=== PATIENT | male | born 1960 | race Caucasian/White ===

== ENCOUNTER 2019-08-13 00:11 | Outpatient (CLI) | payer OTHER, SELFPAY ==
[2019-08-13 18:54] LABS: SARS-CoV-2 RNA PCR Negative
== END 2019-08-13 00:12 | disposition home or self-care (01) ==
LOC: ANHCOVIDDT 00:11
PROVIDERS: PCP Family Medicine; Visit Provider Surgery
DX: Z01.812 Encounter for preprocedural laboratory examination (principal); Z11.59 Encounter for screening for other viral diseases
CPT/HCPCS: 87635; C9803; U0003

== ENCOUNTER 2019-08-15 01:32 | Day surgery (SDC) | payer OTHER, SELFPAY ==
[2019-08-02 14:01] VITALS: BMI 29.5
--- NOTE | 2019-08-14 12:49 | PM.SD ---
Same Day Admit/Disch: HPI History of Present Illness Chief complaint: ventral hernia Narrative: Willie Wagner is a 58 year old male Who has had a bulge above the umbilicus for at least 5 years. It has been getting larger. He is seen in the office and found to have a supraumbilical ventral hernia. He is taken to surgery now for repair. He has not really had much discomfort from it. No previous abdominal surgery. 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 Gender identity (if verbalized by the patient): Male Same Day Admit/Disch: Med Pre-admit Medications Home Medications Medication Instructions Recorded Confirmed Type hydrocodone-acetaminophen 1 - 2 tablet PO Q6H PRN #10 tablet 08/15/19 Rx ketorolac 10 mg PO Q6H 4 Days #16 tablet 08/15/19 Rx Exam Const: General: comfortable, no acute distress, alert and awake HENMT: Head: normocephalic and atraumatic Mouth: Yes Normal oral and palatal mucosa present Eyes: Conjunctivae: conjunctivae normal Pupils: Equal, round and reactive pupils present EOM: EOMs intact bilaterally Neck: Neck: normal visual inspection, no lymphadenopathy and nontender Resp: Effort & Inspection: normal respiratory effort Auscultation: clear to auscultation bilaterally Cardio: Rate: regular rate Rhythm: regular rhythm Heart sounds: no gallops, no murmurs and no rubs GI: Inspection: non-distended and visible herniation ( supraumbilical) GI Palp: Yes Soft to palpation, No Tenderness to palpation present (GI), No Hepatomegaly present, No Splenomegaly present and Yes Hernia present ( partially reducible, nontender, large supraumbilical chronic hernia) Auscultation: normal bowel sounds Skin: Lesions: no lesions Rashes: no rashes Neuro: General: no focal motor deficits and CN's II-XI intact bilaterally Cranial nerves: Yes Equal, round and reactive pupils present, Yes Bilaterally intact EOM present, Yes facial symmetry and Yes Midline tongue present Speech: normal speech Motor exam (neuro): 5/5 motor strength present throughout and Motor abnormalities not present Extrem: General: no clubbing, cyanosis or edema and edema Psych: Affect: normal affect Thought process: Normal thought process present Insight: Good insight present (Psych) DS: Summary Time Spent with Patient Time attestation: Total time spent providing and/or coordinating discharge services: DS: Admitting Diagnosis Admitting Diagnosis Admitting Diagnosis: ventral hernia daily alcohol consumption DS: Discharge Diagnosis Discharge Diagnosis (1) Ventral hernia: Qualifiers: Obstruction and gangrene presence: without obstruction or gangrene Qualified Code(s): K43.9 - Ventral hernia without obstruction or gangrene Code(s): K43.9 - Ventral hernia without obstruction or gangrene Status: Chronic Assessment and Plan: plan to proceed with open repair of supraumbilical ventral hernia that is longstanding. I discussed the procedure the risks the benefits with him. I explained that mesh will almost certainly be used to avoid recurrence. The usual recovery and potential complications were dis
--- NOTE | 2019-08-14 14:03 | P.PNAN_ITS ---
Anes - Initial Pre Proc Eval Procedure: Operation Date: 08/15/19 07:30 Proposed Procedures p Repair Lucille Umbilical Ventral Hernia with Mesh - Stan Moss MD Date/Time: 08/14/19 14:03 Surgeon: Stan Moss MD Pre Op Diagnosis: ventral hernia Patient Data Age: 58 Gender: M Height: 1.75 m Weight: 90.72 kg Allergies Allergy/AdvReac Type Severity Reaction Status Date / Time dicyclomine AdvReac Mild Rash Verified 08/15/19 06:49 levofloxacin AdvReac Mild Rash Verified 08/15/19 06:49 metronidazole AdvReac Mild Rash Verified 08/15/19 06:49 Home Medications Medication Instructions Recorded Confirmed Type No Home Medications 07/12/19 08/15/19 History Patient hx anesthesia problems: none Family hx anesthesia problems: none PMFSH Past Medical History Medical History Daily consumption of alcohol GERD (gastroesophageal reflux disease) Overweight (BMI 25.0-29.9) Ventral hernia Surgical History Surgical History History of esophagogastroduodenoscopy (EGD) Family History Family History Father Family history of liver disease Mother Family history of dementia Unknown Diabetes mellitus Cerebrovascular accident Other Family history of allergic disorder Social History Social History Smoking status: Never smoker Alcohol intake: current Substance use: never 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 Questions were solicited and answers provided to the satisfaction of the patient/family/POA.
[2019-08-15 06:17] VITALS: BP 170/94; PULSE 68; RESP 16; TEMP 36.6; O2SAT 99
[2019-08-15] MEDS: LACTATED RINGERS 1,000 ML 30 ML IV CONT (06:30)
--- NOTE | 2019-08-15 06:49 | WPDHPUPDATE1 ---
History and Physical Update Update Date/Time: 08/15/19 06:49 History and Physical has been reviewed, including an updated exam of the patient. There are NO changes in the patient's condition. Risks, benefits, and alternatives have been discussed and questions answered. Patient agrees to proceed with procedure.
[2019-08-15] MEDS: ceFAZolin 2 GM/D5W 50 ML 2 GM/50 ML BAG IVPB (07:21)
--- NOTE | 2019-08-15 07:26 | P.OP_ITS ---
Procedure Note - Detailed Date of procedure: 08/15/19 Pre-op diagnosis: ventral hernia Ventral hernia Post-op diagnosis: same Procedure performed: Ventral hernia repair with 6.6 cm Parietex underlay mesh Description of procedure: Patient was taken to the operating room and IV sedation was administered. Prep and drape was carried out. The proposed incision just above the upper margin of the umbilicus was marked on the skin. Local anesthetic was infiltrated into the skin and the deeper subcutaneous tissues. Incision was made and dissection was carried down through the skin and to the hernia sac. The sac was then dissected free from the umbilical skin and the surrounding subcutaneous tissues. It was dissected down to its neck. Additional local anesthetic was infiltrated into the neck and the fascia jaramillo rrounding the neck of the hernia sac. The sac was then amputated at its neck. The subcutaneous was undermined around the hernia defect. Additional local was infiltrated around the fascia. I placed a finger inside the hernia defect and checked for any abdominal wall adhesions in the area. None were found. No other hernias were noted. A 6.6 cm Parietex bear river was chosen. It was folded and placed in the defect. Once it symmetrically covered the defect, I placed cranial and caudal transfascial sutures of 0 Ethibond. These sutures were placed in such a fashion that, when tied, they would advance the edges of the hernia defect towards 1 another. These sutures were tied and had the desired effect. Lateral transfascial sutures of 0 Ethibond were then placed on the right and left sides. I then closed the hernia defect with [id number] mattress sutures of 0 Ethibond. The repair looked quite satisfactory. I then infiltrated additional local all around the areas of the repair. The umbilical skin was tacked to the fascia with 3 0 Vicryl suture. The subcutaneous was closed with 3 0 Vicryl. Subcuticular interrupted 4 O Vicryl skin stitches were placed. The skin was then closed with running 4 0 Monocryl subcuticular suture. Wound was dressed with Exofin surgical adhesive. The patient was awakened and taken to recovery in good condition. Counts were correct x2. Implants: 6.6 cm Parietex hernia mesh Anesthesia: MAC and local (0.5% Marcaine with Exparel) Surgeon: Stan Msos MD Diabetes Education Coordinator: Jennifer ASTUDILLO Estimated blood loss (mL): 5 Drains: No Packing: No Pathology: none sent Complications: None Condition: stable Disposition: same day Findings: 20 millimeter hernia defect
[2019-08-15 08:31] VITALS: BP 153/91; PULSE 70; RESP 12; TEMP 36.4; O2SAT 100
[2019-08-15 09:00] VITALS: BP 188/81; PULSE 66; RESP 12
[2019-08-15 09:25] VITALS: BP 177/91; PULSE 66; RESP 18
== END 2019-08-15 09:35 | disposition home or self-care (01) ==
PROVIDERS: PCP Family Medicine; Visit Provider Surgery
PROC: 0WQF0ZZ Repair Abdominal Wall, Open Approach (ICD-10-PCS; CPT 49560; principal; 2019-08-15 07:30)
DX: K43.9 Ventral hernia without obstruction or gangrene (principal); K21.9 Gastro-esophageal reflux disease without esophagitis
CPT/HCPCS: 49560; 49568; C1781; C9290; J0690; J2250; J2405; J2704; J3010; J7120

== ENCOUNTER 2024-12-11 00:49 | Day surgery (SDC) | payer MEDICARE, SELFPAY ==
--- OUTSIDE RECORDS SUMMARY | 2004-04-21 07:30 | XMS_ITS | Continuity of Care Document ---
Author Organization Formerly [facility] Address [id number] [place] [address] [address] [place] [address] Phone Care Team Providers Care Animal Physiologist Name Role Phone Basia Recinos Unavailable Unavailable Advance Directives Directive Yes / No Effective Date File Name No Information Encounters Encounter Description Practice Location Reason(s) For Visit Diagnoses Date Provider Providers Copied on Encounter [facility], [id number] [place] [address] [address], [place], [place], [id number], [place] tel:[phone] [facility] No Information Mar-0 8-200 5 Grisel Flor. [address] , [address], [place], [address], [place]. tel:[phone] Referring Provider: Bon Bhat MD, [address] [place] [address], [place], [address]. tel:[phone] Family History Family Member Type Diagnosis Age At Onset No Information Payers Payer name Insurance type Covered democrat ID Authoriza tion(s) No Information Social History Type Description Quantity Date Captured Comments Sex Male Smoking Status No Information Chief Complaint And Reason For Visit No Information Reason For Referral Reason For Referral No Information History Of Present Illness Encounter Date Complaint History Of Prese nt Illness No Information Functional Status Date Functional Assessmen t No Information Instructions Date Instruction Additional Infor mation No Information Assessments Type Assessment Date No Information Patient Care Teams Name Effective Dates (start - stop) Status Members No Information
[2024-11-30 10:19] VITALS: BMI 31.0
--- OUTSIDE RECORDS SUMMARY | 2024-12-11 00:51 | XMS_ITS | Encounter Summary ---
Author Organization [facility] Address [address] [place] [address] Care Team Providers Care Moving Van Driver Name Role Phone Bon Bhat MD Primary Care Provider Encounter Details Date Type Department Care Team (Late st Contact Info) Description 07/17/2021 Telephone [facility] Pul[facility], Critical Care and Sleep Medicine [address] [facility], [place] [id number] Brien Summers MD [address] [facility] 2[address] DIV OF PULMONARY/CRITICAL CARE [place], [place] [id number] Social History Tobacco Use Types Packs/Day Years Used Date Smoking Tobacco: Never Assessed Sex and Gender Information Value Date Recorded Sex Assigned at Not on file Legal Sex Male 6:58 PM CDT Gender Identity Not on file Sexual Orientation Not on file documented as of this encounter Functional Status * Is person deaf or have serious hearing difficulty? Answer Date of Assessment Author No 06/28/2021 11:28 AM Zari Belcher RN * Is person blind or have serious difficulty seeing? Answer Date of Assessment Author No 06/28/2021 11:28 AM Zari Belcher RN * Does person have serious difficulty walking/climbing stairs? Answer Date of Assessment Author No 06/28/2021 11:28 AM Zari Belcher RN * Does person have difficulty dressing/bathing? Answer Date of Assessment Author No 06/28/2021 11:28 AM Zari Belcher RN * Does person have difficulty doing errands alone? Answer Date of Assessment Author No 06/28/2021 11:28 AM Zari Belcher RN documented as of this encounter Mental Status * Does person have difficulty concentrating/remembering/making decisions? Answer Entry Date Author No 06/28/2021 11:28 AM Zari Belcher RN documented in this encounter Plan of Treatment Not on file documented as of this encounter Visit Diagnoses Not on filedocumented in this encounter Care Teams Moving Van Driver Relationship Specialty Start Date End Date Bon Bhat MD [address] [place] [id number] PCP - General 06/29/21 documented as of this encounter
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
[2024-12-11 07:13] VITALS: BP 129/93; PULSE 89; RESP 18; TEMP 36.1; O2SAT 100
[2024-12-11] MEDS: LACTATED RINGERS 1,000 ML 150 ML IV CONT (07:24)
--- NOTE | 2024-12-11 08:06 | WPDANESEPPF ---
Anes - Initial Pre Proc Eval Procedure: Operation Date: 12/11/24 08:30 Proposed Procedures p Screening Colonoscopy - Bayron Moser DO Date/Time: 12/11/24 08:06 Surgeon: Bayron Moser DO Pre Op Diagnosis: Neoplasm screening Patient Data Age: 64 Gender: M Height: 1.75 m Weight: 90.7 kg Last Vital Signs Temp 97 F L 12/11/24 07:13 Pulse 89 12/11/24 07:13 Resp 18 12/11/24 07:13 BP 129/93 H 12/11/24 07:13 Pulse Ox 100 12/11/24 07:13 O2 Del Method Room Air 12/11/24 07:13 Allergies Allergy/AdvReac Type Severity Reaction Status Date / Time dicyclomine AdvReac Mild Rash Verified 12/11/24 07:12 levofloxacin AdvReac Mild Rash Verified 12/11/24 07:12 metronidazole AdvReac Mild Rash Verified 12/11/24 07:12 Home Medications ?Medication ?Instructions ?Recorded ?Confirmed ?Type omeprazole magnesium 20 mg 20 mg PO DAILY 12/06/23 12/11/24 History tablet,delayed release (Prilosec OTC) chlorthalidone 25 mg tablet 25 mg PO DAILY #90 tabs 10/29/24 12/11/24 Rx Patient hx anesthesia problems: none Family hx anesthesia problems: none Results Review: All pre-operative results and documents have been reviewed as part of the pre-operative evaluation. [facility] Past Medical History Medical History Overweight (BMI 25.0-29.9) Ventral hernia Daily consumption of alcohol GERD (gastroesophageal reflux disease) Surgical History Surgical History History of ventral hernia repair with 6.6 cm Parietex underlay mesh 08/15/19 History of esophagogastroduodenoscopy (EGD) Family History Family History Father Family history of liver disease Alcoholism Mother Family history of dementia Unknown Diabetes mellitus Cerebrovascular accident Sibling Diabetes mellitus Cerebrovascular accident Heart disease Other Family history of allergic disorder Social History Social History Smoking status: Never smoker Alcohol intake: current Drinks per week: 84 Alcohol use details: beer Substance use: never Substance use type: does not use Do You Feel Safe in your Home?: Yes Lack of Transportation: No Lack of Food: Never True Current Housing: I Have Housing Concerned About Future Housing: No Difficulty Paying Gas/Electric Bills: No Difficulty Paying for Meds: No Currently Unemployed: No Education: Trade/Vocational Certificate Difficulty w/ Childcare or Family Care: No Living arrangements: with family Occupation/Education: retired Additional occupation/education comments: [employer] Gender identity (if verbalized by the patient): Male Spiritual care concerns: No Agree to blood products: Yes Anes - Eval Final PreProcedure Day of Procedure 12/11/24 08:06 Patient weight: overweight Lungs: normal air movement Airway: Mallampati scale class II Neurological: alert and oriented Last oral intake: >/= 8 hours ASA classification: II Emergent: no Anesthetic plan: proceed Anesthesia type and monitoring: general GIVS and standard monitoring Results Review: All pre-operative results and documents have been reviewed as part of the pre-operative evaluation. No cp or sob w 1-2 fos, pt admits to 10 beers/day, none in 7 days, no withdrawl symptoms. Informed Consent: The patient's anesthetic plan and its attendant risks and benefits were discussed with the patient/family/POA. Questions were solicited and answers provided to the satisfaction of the patient/family/POA.
--- NOTE | 2024-12-11 08:36 | PM.IMHP ---
H&P: HPI History of Present Illness Date/Time: 12/11/24 08:36 Chief Complaint: Screening for colorectal cancer Narrative: This is a 64-year-old man who presents for colonoscopy. His last colonoscopy was 10 years ago. He denies any hematochezia or melena. He denies any family history of colon cancer. Review of Systems Review of Systems: All systems reviewed & are unremarkable except as noted in HPI and below Constitutional: Constitutional: Denies chills, Denies fever(s), Denies headache(s) and Denies weight loss Eyes: Eyes: Denies change in vision ENT: Denies dizziness, Denies headache(s), Denies neck mass and Denies throat swelling Cardiovascular: Cardiovascular: Denies chest pain, Denies lightheadedness and Denies dyspnea Respiratory: Respiratory: Denies cough, Denies dyspnea and Denies wheezing Gastrointestinal: Gastrointestinal: Denies abdominal pain, Denies change in bowel habits, Denies nausea and Denies vomiting Genitourinary: Genitourinary: Denies hematuria and Denies dysuria Musculoskeletal: Musculoskeletal: Reports as per HPI Integumentary/Breasts: Skin/Breast: Reports as per HPI Neurologic: Denies dizziness and Denies headache(s) Allergic/Immunologic: Allergic/Immunologic: Denies throat swelling and Denies wheezing PMF Past Medical History Medical History Overweight (BMI 25.0-29.9) Ventral hernia Daily consumption of alcohol GERD (gastroesophageal reflux disease) Surgical History Surgical History History of ventral hernia repair with 6.6 cm Parietex underlay mesh 08/15/19 History of esophagogastroduodenoscopy (EGD) Family History Family History Father Family history of liver disease Alcoholism Mother Family history of dementia Unknown Diabetes mellitus Cerebrovascular accident Sibling Diabetes mellitus Cerebrovascular accident Heart disease Other Family history of allergic disorder Social History Social History Smoking status: Never smoker Alcohol intake: current Drinks per week: 84 Alcohol use details: beer Substance use: never Substance use type: does not use Do You Feel Safe in your Home?: Yes Lack of Transportation: No Lack of Food: Never True Current Housing: I Have Housing Concerned About Future Housing: No Difficulty Paying Gas/Electric Bills: No Difficulty Paying for Meds: No Currently Unemployed: No Education: Trade/Vocational Certificate Difficulty w/ Childcare or Family Care: No Living arrangements: with family Occupation/Education: retired Additional occupation/education comments: [employer] Gender identity (if verbalized by the patient): Male Spiritual care concerns: No Agree to blood products: Yes Meds Home Medications and Allergies Home Medications ?Medication ?Instructions ?Recorded ?Confirmed ?Type omeprazole magnesium 20 mg 20 mg PO DAILY 12/06/23 12/11/24 History tablet,delayed release (Prilosec OTC) chlorthalidone 25 mg tablet 25 mg PO DAILY #90 tabs 10/29/24 12/11/24 Rx Allergies Allergy/AdvReac Type Severity Reaction Status Date / Time dicyclomine AdvReac Mild Rash Verified 12/11/24 07:12 levofloxacin AdvReac Mild Rash Verified 12/11/24 07:12 metronidazole AdvReac Mild Rash Verified 12/11/24 07:12 Vital Signs Vital Signs - 24 hr 12/11/24 07:13 Temperature 97 F L Pulse Rate 89 Respiratory Rate 18 Blood Pressure 129/93 H Pulse Oximetry 100 Oxygen Delivery Room Air Exam Const: General: no acute distress and alert Orientation/consciousness: patient oriented x3 HENMT: Head: normocephalic and atraumatic Ears: hearing grossly normal bilaterally Face/Nose/Sinus: Normal nares present Mouth: Yes Normal oral and palatal mucosa present Eyes: Periorbital: periorbital findings normal Sclera: sclerae normal EOM: EOMs intact bilaterally Neck: Neck: normal visual inspection, no lymphadenopathy and trachea midline Chest: Chest palpation & inspection: normal inspection of the chest Resp: Effort & Inspection: normal respiratory effort Auscultation: clear to auscultation bilaterally Cardio: Jugular venous distension: no JVD Rate: regular rate Rhythm: regular rhythm Heart sounds: S1 normal heart sound present and S2 normal heart sound present Peripheral pulses: Peripheral pulses 2+ throughout GI: Inspection: normal to inspection GI Palp: Yes Soft to palpation, No Tenderness to palpation present (GI), No Guarding due to palpation present (GI) and No Rebound tenderness present Percussion: Yes normal to percussion Auscultation: normal bowel sounds : General: Yes no CVA tenderness Back/Spine/Pelvis: Back: no CVA tenderness Neuro: General: patient oriented x3, no focal motor deficits and CN's II-XI intact bilaterally Cognition (Neuro): normal cognition Speech: normal speech Motor exam (neuro): 5/5 motor strength present throughout Extrem: General: capillary refill normal and no clubbing, cyanosis or edema Assessment and Plan Assessment and plan (1) Colon cancer screening: Code(s): Z12.11 - Encounter for screening for malignant neoplasm of colon Status: Acute Assessment and Plan: I have recommended colonoscopy. I have discussed the procedure, risks, benefits, and alternatives. Questions were answered. Patient is agreeable to proceed.
--- NOTE | 2024-12-11 09:08 | S_PTH ---
PATIENT: Willie Wagner LOC: [facility] #:[id number] AGE/SX: 64/M ROOM: RE12/11/[address]: Bayron Moser DO : 1960 BED: DIS: 12/11/2024 SPEC #: [id number] RECD: 12/11/24 10:07 STATUS: IMMANUEL RE #: [id number] KITTY: 12/11/24 09:[address]: Bayron Moser DEPT: [facility] Surgical RECD BY: Frederic Werner ENTERED: 12/11/24 10:08 SP TYPE: Surgical OTHR DR: Paige Loyd, RENNY Tissues: A - Colon Polypectomy B - Colon Polypectomy C - Colon Polypectomy Procedures: Hematoxylin and Eosin Stain Gross and Microscopic Level 4
[2024-12-11 09:09] VITALS: BP 128/86; PULSE 90; RESP 23; O2SAT 98
[2024-12-11 09:19] VITALS: BP 124/83; PULSE 75; RESP 23; O2SAT 100
[2024-12-11 09:29] VITALS: BP 125/82; PULSE 73; RESP 18; O2SAT 100
== END 2024-12-11 09:35 | disposition home or self-care (01) ==
PROVIDERS: PCP Nurse Practitioner Family; Visit Provider Surgery
PROC: 0DJD8ZZ Inspection of Lower Intestinal Tract, Via Natural or Artificial Opening Endoscopic (ICD-10-PCS; CPT 45378; principal; 2024-12-11 08:30)
DX: Z12.11 Encounter for screening for malignant neoplasm of colon (principal); D12.0 Benign neoplasm of cecum; D12.5 Benign neoplasm of sigmoid colon; K62.1 Rectal polyp; K57.30 Diverticulosis of large intestine without perforation or abscess without bleeding
CPT/HCPCS: 45385; 88305; J2704; J7120